=== PATIENT | female | born 1985 | race Caucasian/White ===

== ENCOUNTER → 2024-08-18 13:23 | Observation (INO) ==
[2024-08-17] MEDS: 0.9 % SODIUM CHLORIDE 1000 ML 1,000 ML IV SCH (15:21)
[2024-08-17 15:29] LABS: Basophils%(Percent) Auto 0.2 (0.1-0.85); Eosinophils#(Absolute)Auto 0.1 (0.0-0.2); Eosinophils%(Percent) Auto 1.9 % (0.4-2.8); Granulocytes % - Auto 50.5 % (47.8-71.3); Granulocytes#(Absolute)- Auto 2.3 (2.3-6.0); Hematocrit 41.1 % (35.9-46.7); Mean Corpuscular Volume 82.9 fl (81.0-93.7); Monocytes #(Absolute)- Auto 0.5 (1.1-3.1); Monocytes %(Percent)- Auto 10.9 % (3.6-9.8); Platelet Count 146 K/uL (152-353); White Blood Count 4.5 K/uL (4.3-9.3)
--- NOTE | 2024-08-17 15:34 | History & Physical Report ---
H&P: HPI History of Present Illness Chief complaint: dehydration, uti, NVD Narrative: Patient is a 38 year old female direct admitted from [facility] for dehydration, UTI, intractable nausea, vomiting, and fever for one week. Per PCP, patient states she is unable to hold anything down at this time. Orthostatics were observed during PCP office visit; patient IL was in 70's while sitting, as soon as patient stands IL elevated to 90's. Admitted patient to med/surg floor for further observation and treatment. Day one of hospital stay, patient arrived alert and oriented. CBC, CMP, Lactic Acid, Phos, Mag, Blood Cultures X2, and Urinalysis ordered upon arrival. Nursing staff is to apply anti-embolic stockings for preventative measures. IV fluids started for dehydration and Ceftriaxone Sodium IV started for urinary tract infection. Lab work to be repeated in A.M for monitoring purposes. Review of Systems Status of ROS 10 or more systems reviewed and unremark able except as noted in history and below Constitutional Reports: fever and fatigue; Denies: chills or change in weight Eyes Denies: change in vision, blurry vision, blind spots or light sensitivity Ears, nose, mouth, and throat Denies: throat pain, neck pain, throat swelling, difficulty swallowing or hoarseness Cardiovascular Denies: chest pain, palpitations, edema, swelling of feet/ankles or lightheadedness Respiratory Denies: shortness of breath, cough, wheezing or stridor Gastrointestinal Reports: nausea and vomiting; Denies: abdominal pain Genitourinary Reports: painful urination, urinary frequency and urinary urgency; Denies: urinary incontinence Musculoskeletal Denies: back pain, neck pain, extremity pain or extremity swelling Integumentary/Breast Denies: rash, itching, redness, skin pain or skin tenderness Neurological Denies: headache, numbness in extremities or weakness in extremities Psychiatric Denies: anxiety, mood swings, panic attacks, change in sleep pattern or hopelessness Endocrine Reports: excessive urination and fatigue; Denies: excessive thirst or cold intolerance Hematologic/Lymphatic Denies: easy bruising, easy bleeding or enlarged lymph nodes Allergic/Immunologic Denies: hives, throat swelling, tongue swelling or facial swelling PFSH PFSH Medical History Hypertension Social History Problems where you live: no known problems Highest level of school completed/degree received: high school Meds Home Medications and Allergies Home Medications Medication Instructions Recorded Confirmed 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 08/17/24 08/17/24 History losartan 25 mg tablet (Cozaar) 25 mg PO DAILY 08/17/24 08/17/24 History Allergies Allergy/AdvReac Type Severity Reaction Status Date / Time nkda Allergy Unknown Uncoded 08/17/24 14:22 Exam Exam: Patient in rojas's position upon entering room for exam Constitutional: abnormal general appearance (disheveled) and (lethargic), distress noted (mild), abnormal body habitus (obese), no limitations and alert Vital Signs - 24 hr 08/17/24 14:10 Temperature 98.4 F Pulse Rate [Left B rachial] 65 Respiratory Rate 19 Blood Pressure [Le ft Arm] 155/86 Pulse Oximetry 98 Oxygen Delivery Me thod Room Air HENMT: normocephalic, head/scalp atraumatic, hearing grossly normal bilaterally, external ears normal and external nose normal Eyes: PERRL, EOMs intact bilaterally, conjunctivae normal, alignment normal, periorbital findings normal and visual acuity normal Neck/C-Spine: trachea midline Lymph: no lymphadenopathy noted and no lymphedema noted Chest: inspection of chest normal and palpation of chest normal Respiratory: breath sounds equal bilaterally, normal respiratory effort, clear to auscultation bilaterally, no wheezes, no rales and no retractions Cardiovascular: normal heart rate noted, regular rhythm noted, no gallop, no rub and no murmur Gastrointestinal: abdomen normal to inspection, abdomen soft to palpation, nontender to palpation, nondistended and normoactive bowel sounds Genitourinary: no CVA tenderness and bladder abnormal to palpation (tender) Back/Pelvis: spine normal to inspection and no thoracic spine tenderness Extremities: normal to inspection, normal to palpation, no tenderness and no deformity 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, no movement abnormality noted, no focal motor deficit noted, no sensory deficits noted, deep tendon reflexes 2+ bilaterally, gait normal, speech normal, coordination normal, no pronator drift noted, no fasciculations noted and GCS normal Psychiatry: Mental Status Exam documented within this Exam's Psych section mental status grossly normal, oriented x3, thought process normal, cooperative, affect normal, psychomotor activity normal and memory normal Skin: skin color normal, no rash, no lesions, no wounds, skin turgor normal and no jaundice Assessment and Plan Assessment and Plan (1) Dehydration: Code(s): E86.0 - Dehydration (2) UTI (urinary tract infection): Qualifiers: Hematuria presence: with hematuria Urinary tract infection type: site unspecified Qualified Code(s): N39.0 - Urinary tract infection, site not specified; R31.9 - Hematuria, unspecified Code(s): N39.0 - Urinary tract infection, site not specified (3) Intractable nausea and vomiting: Code(s): R11.2 - Nausea with vomiting, unspecified (4) Orthostatic hypotension: Code(s): I95.1 - Orthostatic hypotension (5) Fever: Qualifiers: Fever type: unspecified Qualified Code(s): R50.9 - Fever, unspecified Code(s): R50.9 - Fever, unspecified (6) Hypertension: Qualifiers: Hypertension type: primary hypertension Qualified Code(s): I10 - Essential (primary) hypertension Code(s): I10 - Essential (primary) hypertension Plan Sodium Chloride 1,000 mls @ 200 mls/hr IV CONT Pantoprazole Sodium 40 mg PO BID Ceftriaxone Sodium 1 gm in Sodium Chloride 50 mls @ 100 mls/hr IV Q12H Acetaminophen 1,000 mg PO Q6H PRN Ketorolac Tromethamine 15 mg IVP Q6H PRN Ondansetron Hcl 4 mg INJ Q4H PRN CBC, CMP, Lactic Acid, Phos, Mag, and UA requested. Results Pulse Oximetry Attestation: I have reviewed the pertinent pulse oximetry results. ECG Attestation: I have reviewed the pertinent ECG results. Prior ECG tracings: available for review Imaging Imaging ordered: Chest x-ray Attestation: I have reviewed the pertinent imaging results.
[2024-08-17 15:44] LABS: Potassium 3.1 mmol/L (3.6-5.2)
[2024-08-17] MEDS: CEFTRIAXONE SODIUM 1 GM in 0.9 % SODIUM CHLORIDE MB+ 50 ML IV SCH (16:12)
[2024-08-17] MEDS: LOSARTAN POTASSIUM 50 MG TABLET PO SCH (16:13)
[2024-08-17 17:27] LABS: PH BODY FLUID EXCP BLOOD 6.5 (5 - 9); Specific Gravity Urine 1.025 (1.001-1.035); Urine Appearance HAZY (CLEAR); Urine Blood NEGATIVE (NEG - TRACE); Urine Color DARK YELLOW (STRAW/YELL.); Urine Urobilinogen Normal (NORMAL)
[2024-08-17 17:28] LABS: Urine Amorphous Sediment Negative (Negative); Urine Yeast Negative (Negative)
[2024-08-17] MEDS: PANTOPRAZOLE SODIUM 40 MG TABLET.DR PO SCH (21:34)
[2024-08-18 04:50] LABS: Basophils%(Percent) Auto 0.4 (0.1-0.85); Eosinophils#(Absolute)Auto 0.1 (0.0-0.2); Eosinophils%(Percent) Auto 2.8 % (0.4-2.8); Granulocytes % - Auto 44.9 % (47.8-71.3); Granulocytes#(Absolute)- Auto 1.9 (2.3-6.0); Hematocrit 33.8 % (35.9-46.7); Monocytes #(Absolute)- Auto 0.5 (1.1-3.1); Monocytes %(Percent)- Auto 12.6 % (3.6-9.8); Platelet Count 123 K/uL (152-353); White Blood Count 4.3 K/uL (4.3-9.3)
[2024-08-18 05:08] LABS: Potassium 3.1 mmol/L (3.6-5.2)
[2024-08-18] MEDS: POTASSIUM CHLORIDE 20 MEQ TAB.ER.PRT PO ONE (09:37)
[2024-08-18] MEDS: POTASSIUM CHLORIDE IN WATER 10 MEQ/100 ML PIGGYBACK IV ONE (09:37)
[2024-08-18 10:10] LABS: Amphetamine Screen Urine NEG. (NEGATIVE); Cannabinoid Screen Urine POS. (NEGATIVE); Cocaine Screen Urine NEG. (NEGATIVE); Methadone Screen Urine NEG. (NEGATIVE); Opiate Screen Urine NEG. (NEGATIVE)
[2024-08-18 11:58] VITALS: BP 156/85; PULSE 49; RESP 19; TEMP 98.6
[~2024-08-18 13:23] MED LIST: ACETAMINOPHEN 500 MG TABLET PO PRN; KETOROLAC 30 MG/ML INJ VIAL IVP PRN; ONDANSETRON HCL/PF 4 MG/2 ML VIAL INJ PRN
--- NOTE | 2024-08-18 15:53 | Discharge Summary ---
DS: Providers Provider Date of admission: 08/17/24 13:15 Primary care physician: Nenita Rg DO Admitting clinician: Aubree Perea Attending physician on admission: Nenita Rg Attending physician on discharge: Nenita Rg Discharging clinician: Nenita Rg Anticipated date of discharge: 08/18/24 DS: Diagnosis Discharge Diagnosis (1) Dehydration: (2) UTI (urinary tract infection): Qualifiers: Urinary tract infection type: site unspecified Hematuria presence: with hematuria Qualified Code(s): N39.0 - Urinary tract infection, site not specified; R31.9 - Hematuria, unspecified (3) Intractable nausea and vomiting: (4) Orthostatic hypotension: (5) Fever: Qualifiers: Fever type: unspecified Qualified Code(s): R50.9 - Fever, unspecified (6) Hypertension: Qualifiers: Hypertension type: primary hypertension Qualified Code(s): I10 - Essential (primary) hypertension Plan Discharge home for self care. DS: Summary Hospital Course Hospital Course: Patient is a 38 year old female direct admitted from [facility] for dehydration, UTI, intractable nausea, vomiting, and fever for one week. Per PCP, patient states she is unable to hold anything down at this time. Orthostatics we re observed during PCP office visit; patient NE was in 70's while sitting, as soon as patient stands NE elevated to 90's. Admitted patient to med/surg floor for further observation and treatment. Day one of hospital stay, patient arrived alert and oriented. CBC, CMP, Lactic Acid, Phos, Mag, Blood Cultures X2, and Urinalysis ordered upon arrival. Nursing staff is to apply anti-embolic stockings for preventative measures. IV fluids started for dehydration and Ceftriaxone Sodium IV started for urinary tract infection. Lab work to be repeated in A.M for monitoring purposes. Day two of hospital stay, patient states she is feeling much better today. Patient has not experienced any further nausea and vomiting while on the med/surg floor. She tolerated breakfast and lunch well with no episodes. Patient is ready to discharge home for self care. Provider recommends patient follow up with PCP in 5-7 days of discharge. Status at Discharge Functional status at discharge: independent ambulation Overall status at discharge: patient is back to baseline Time Spent with Patient Time attestation: Total time spent providing and/or coordinating discharge services: Time spent: greater than 30 minutes Exam Exam: Patient in rojas's position upon entering room for exam Constitutional: normal general appearance, no apparent distress, abnormal body habitus (obese), no limitations and alert Vital Signs - 24 hr 08/17/24 16:07 08/17/24 16:13 08/17/24 22:16 Temperature 98.5 F 98.9 F Pulse Rate [Left B rachial] 67 62 Respiratory Rate 17 18 Blood Pressure 159/99 Blood Pressure [Le ft Arm] 159/99 136/80 Pulse Oximetry 99 98 Oxygen Delivery Me thod Room Air Room Air 08/18/24 00:26 08/18/24 04:00 08/18/24 08:00 Temperature 97.9 F 98.4 F 98.5 F Pulse Rate [Left B rachial] 56 L 63 74 Respiratory Rate 17 17 20 Blood Pressure Blood Pressure [Le ft Arm] 133/64 138/69 137/77 Pulse Oximetry 98 98 99 Oxygen Delivery Me thod Room Air Room Air 08/18/24 11:57 Temperature 98.6 F Pulse Rate [Left B rachial] 49 L Respiratory Rate 19 Blood Pressure Blood Pressure [Le ft Arm] 156/85 Pulse Oximetry 99 Oxygen Delivery Me thod Room Air HENMT: normocephalic, head/scalp atraumatic, hearing grossly normal bilaterally, external ears normal and external nose normal Eyes: PERRL, EOMs intact bilaterally, conjunctivae normal, alignment normal, periorbital findings normal and visual acuity normal Neck/C-Spine: trachea midline Lymph: no lymphadenopathy noted and no lymphedema noted Chest: inspection of chest normal and palpation of chest normal Respiratory: breath sounds equal bilaterally, normal respiratory effort, clear to auscultation bilaterally, no wheezes, no rales and no retractions Cardiovascular: normal heart rate noted, regular rhythm noted, no gallop, no rub and no murmur Gastrointestinal: abdomen normal to inspection, abdomen soft to palpation, nontender to palpation, nondistended and normoactive bowel sounds Genitourinary: no CVA tenderness and bladder abnormal to palpation (tender) Back/Pelvis: spine normal to inspection and no thoracic spine tenderness Extremities: normal to inspection, normal to palpation, no tenderness and no deformity 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, no movement abnormality noted, no focal motor deficit noted, no sensory deficits noted, deep tendon reflexes 2+ bilaterally, gait normal, speech normal, coordination normal, no pronator drift noted, no fasciculations noted and GCS normal Psychiatry: Mental Status Exam documented within this Exam's Psych section mental status grossly normal, oriented x3, thought process normal, cooperative, affect normal, psychomotor activity normal and memory normal Skin: skin color normal, no rash, no lesions, no wounds, skin turgor normal and no jaundice DS: Data Data Completed and Pending Labs on day of discharge: Labs from last 24 hours 08/18/24 08/18/24 08/17/24 04:42 00:00 16:44 WBC 4.3 RBC 4.1 Hgb 11.3 L Hct 33.8 L MCV 82.0 MCH 27.5 L MCHC 33.5 RDW 15.3 H Plt Count 123 L MPV 9.4 Gran % 44.9 L Lymph % (Auto) 39.3 [place] % (Auto) 12.6 H Eos % (Auto) 2.8 Baso % (Auto) 0.4 Lymph # (Auto) 1.7 [place] # (Auto) 0.5 L Eos # (Auto) 0.1 Baso # (Auto) 0.0 Absolute Gran (auto) 1.9 L Sodium 138 Potassium 3.1 L Chloride 105.0 Carbon Dioxide 25 Anion Gap 8.0 BUN 5 L Creatinine 0.6 Estimated GFR 118.5 Glucose 89 Lactic Acid Calcium 7.7 L Phosphorus 2.5 Magnesium 2.0 Total Bilirubin 0.32 AST 32 ALT 52 Alkaline Phosphatase 62 Total Protein 5.7 L Albumin 2.7 L Urine Color Dark yellow Urine Appearance Hazy Ur Specific [place] 1.025 Urine Protein 1+ Urine Glucose (UA) Normal Urine Ketones Large Urine Occult Blood Negative Urine Nitrite Positive Urine Bilirubin Negative Urine Urobilinogen Normal Ur Leukocyte Esterase Negative Urine RBC Negative Urine WBC 0 - 2 Ur Epithelial Cells Few Amorphous Sediment Negative Urine Bacteria Many Urine Mucus Few Urine Trichomonas Negative Urine Yeast Negative Fluid pH 6.5 Urine Opiates Screen Neg. Urine Methadone Screen Neg. Barbiturate Screen Neg. Ur Phencyclidine Scrn Neg. Amphetamines Screen Neg. U Benzodiazepines Scrn Neg. Urine Cocaine Screen Neg. U Marijuana (THC) Screen Pos. 08/17/24 15:05 WBC RBC Hgb Hct MCV MCH MCHC RDW Plt Count MPV Gran % Lymph % (Auto) [place] % (Auto) Eos % (Auto) Baso % (Auto) Lymph # (Auto) [place] # (Auto) Eos # (Auto) Baso # (Auto) Absolute Gran (auto) Sodium 136 Potassium 3.1 L Chloride 101.0 Carbon Dioxide 26 Anion Gap 9.0 BUN 8 Creatinine 0.6 Estimated GFR 118.5 Glucose 88 Lactic Acid 1.0 Calcium 8.7 Phosphorus 2.5 Magnesium 2.2 Total Bilirubin 0.56 AST 42 H ALT 64 Alkaline Phosphatase 83 Total Protein 7.7 Albumin 3.7 Urine Color Urine Appearance Ur Specific [place] Urine Protein Urine Glucose (UA) Urine Ketones Urine Occult Blood Urine Nitrite Urine Bilirubin Urine Urobilinogen Ur Leukocyte Esterase Urine RBC Urine WBC Ur Epithelial Cells Amorphous Sediment Urine Bacteria Urine Mucus Urine Trichomonas Urine Yeast Fluid pH Urine Opiates Screen Urine Methadone Screen Barbiturate Screen Ur Phencyclidine Scrn Amphetamines Screen U Benzodiazepines Scrn Urine Cocaine Screen U Marijuana (THC) Screen Preliminary micro results at discharge 08/17/24 16:44 Urine Culture - Preliminary Urine,Clean Catch 08/17/24 15:15 Blood Culture - Preliminary Blood - Venous Draw (Peripheral) 08/17/24 15:05 Blood Culture - Preliminary Blood - Venous Draw (Peripheral) Discharge Plan Discharge Disposition: Home, Self-Care Condition: Improved Discharge Medications: New ciprofloxacin HCl [Cipro] 500 mg tablet 500 mg PO Q12H Qty: 10 0RF ondansetron 8 mg tablet,disintegrating 8 mg PO Q8H PRN (Reason: nausea and vomiting) Qty: 10 0RF 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 PO 3XD PRN (Reason: acid reflux) Changed losartan [Cozaar] 25 mg tablet 50 mg PO DAILY Qty: 30 0RF Patient Comments: PATIENT STATES THAT SHE WAS ON LOSARTAN AND STOPPED 2 MONTHS AGO DUE NOT BEING ABLE TO GO TO THE PHYSICIAN Discharge Orders: Discharge Order (Routine); Ordered 08/18/24 Ordered By: Nenita Rg Activity: increase activity as tolerated Diet: other Diet Detail: avoid sodas and tea and citrus drinks and increase water intake and can drink cranberry juice Interventions: Discharge Assessment Last Done: 08/18/24 13:19 MED/SURG & ICU Observation Charge Sheet Last Done: 08/18/24 13:21 Patient Instructions: Urinary Tract Infection in Women (DC) Activity Restrictions/Additional Instructions: avoid sodas and citrus drinks and tea and increase water intake and cranberry juice is good. toileting and sex hygiene discussed in detail with patient and empty bladder every 2-3 hours while awake Forms: Portal/Health Info Access Inst Follow-Ups: Nenita Rg DO [Primary Care Provider] - 08/25/24 11:00 am Discharge Date/Time: 08/18/24 13:23
== END | disposition home or self-care (01) ==
LOC: MS
PROVIDERS: ADMIT Family Medicine; ATTEND Family Medicine